=== PATIENT | male | born 1990 | race Hispanic/Latino ===

== ENCOUNTER 2022-10-13 12:25 | Emergency (ER) | payer OTHER, SELFPAY ==
--- NOTE | ~2022-10-13 | XR_ITS ---
EXAMINATION: XR ankle LT min 3V DATE: 10/13/2022 13:33 INDICATION: Posterolateral left ankle pain and bruising post injury TECHNIQUE: Anteroposterior, oblique, mortise, and lateral views of the left ankle were obtained. COMPARISON: None. FINDINGS: Alignment is normal. No acute fracture. Small corticated ossicle at the tip of the medial malleolus likely sequela of chronic trauma. Joint spaces are well maintained. No ankle joint effusion. Soft ti ssue swelling about the lateral malleolus and extending anterior to the ankle. IMPRESSION: 1. No acute osseous abnormality. Reviewed, dictated and finalized at location A.
[2022-10-13 12:41] VITALS: BP 154/95; PULSE 75; RESP 16; TEMP 37; O2SAT 98
--- NOTE | 2022-10-13 12:47 | ED.LOWEXIN ---
HPI - Extremity Injury (Lower) General Chief Complaint: Extremity Injury, Lower Stated Complaint: Left ankle injury Time Seen by Provider: 10/13/22 13:12 Source: patient and RN notes reviewed Mode of arrival: ambulatory Limitations: no limitations History of Present Illness HPI Narrative: 32-year-old male presents with concern for left ankle injury. Reports when he was playing soccer yesterday he got kicked on the medial ankle, causing ankle to turn in. He reports he has had bruising and swelling since then. Reports he has been resting, icing, using compression and elevation. He reports he missed work today and his boss wanted him have a work note. MD complaint: ankle injury Related Data Allergies Allergy/AdvReac Type Severity Reaction Status Date / Time No Known Allergies Allergy Verified 10/13/22 13:16 Review of Systems Review of Systems: CONSTITUTIONAL: Denies malaise, chills, sweats, or fever. SKIN: Denies rash or itching, open skin, laceration, abrasion, redness, warmth MUSCULOSKELETAL: Reports left ankle pain, swelling, bruising NEUROLOGIC: Denies numbness, weakness All systems reviewed & are unremarkable except as noted in HPI and below PMFSH Comments At time of signature, agree with nursing past medical, surgical, social and family history. There is no relevant family history pertinent to the presenting complaint Exam Narrative: GENERAL: Well-appearing, well-nourished, and in no acute distress. HEAD: Normocephalic, atraumatic. EYES: PERRLA, conjunctivae clear NECK: Supple. CHEST: Speaks in full sentences. No respiratory distress. HEART: Regular rate and rhythm. Normal and equal peripheral pulses. EXTREMITIES: Left ankle, foot, digits have grossly normal strength and sensation, grossly normal range of motion. Moderate lateral edema, ecchymosis. 5/5 strength with ankle in digit flexion and extension. Normal sensation with sensitivity to light touch and pain. Lateral ankle tenderness. No open wounds, no skin tenting, no devitalized tissue or atrophy, no trophic changes, no obvious deformity, alignment normal, nearby joints and structures intact. Distal pulses palpable and equal bilaterally, skin warm, dry, pink. Capillary refill less than 3 seconds. SKIN: Warm, dry, no rash. NEURO: Alert and oriented x3. PSYCH: Normal mood and affect Course Course Emergency Course: Patient is aware of diagnosis, understands and agrees to treatment plan. Anticipatory guidance given. Patient agrees to follow-up as directed and is aware of reasons to seek care at the emergency department. Portions of this record may have been created with voice recognition software Level of Care: Express Care Visit Vital Signs Vital signs: Reviewed. MDM - Extremity Injury (Lower) MDM Narrative Medical decision making narrative: Patients injury and pain is consistent with musculoskeletal etiology. No signs of neurological or vascular compromise on exam. Compartments and tissues are soft without signs of compartment syndrome. Pain is felt appropriate for further evaluation on an outpatient basis. Imaging Data My impression: Images reviewed, interpreted by radiologist, agree, see report. Radiologist's impression: EXAMINATION: XR ankle LT min 3V DATE: 10/13/2022 13:33 INDICATION: Posterolateral left ankle pain and bruising post injury TECHNIQUE: Anteroposterior, oblique, mortise, and lateral views of the left ankle were obtained. COMPARISON: None. FINDINGS: Alignment is normal.? No acute fracture. Small corticated ossicle at the tip of the medial malleolus likely sequela of chronic trauma. Joint spaces are well maintained.? No ankle joint effusion. Soft tissue swelling about the lateral malleolus and extending anterior to the ankle. IMPRESSION: 1. No acute osseous abnormality. Critical Care Time Critical Care Time Critical Care Time: No Discharge Plan Discharge Clinical Impression: Ankle sprain and strain Pa
== END 2022-10-13 13:54 | disposition home or self-care (01) ==
PROVIDERS: Emergency Provider Nurse Practitioner
DX: S93.402A Sprain of unspecified ligament of left ankle, initial encounter (principal); S96.912A Strain of unspecified muscle and tendon at ankle and foot level, left foot, initial encounter; W51.XXXA Accidental striking against or bumped into by another person, initial encounter; Y93.66 Activity, soccer
CPT/HCPCS: 73610; 99203; G0463